=== PATIENT | male | born 1975 | race Caucasian/White ===

== ENCOUNTER 2018-08-22 02:16 | Emergency (ER) | payer OTHER ==
[2018-08-22 02:35] VITALS: BP 147/100; PULSE 90; RESP 18; TEMP 98.1
--- NOTE | 2018-08-22 04:15 | ED ---
General Adult HPI - General Chief complaint: Recheck/Abnormal Lab/Rx Stated complaint: Peg tube replacement Time Seen by Provider: 08/22/18 02:50 Source: EMS Mode of arrival: EMS - History of Present Illness Initial comments: 42-year-old male patient presented to the emergency department today for evaluation of clogged PEG tube. Patient was seen and evaluated at [facility] earlier today. Tube was replaced with a 10-Sami Jernigan catheter. When he arrived back at [facility] the tube would not flush so they sent him here for further evaluation. Patient denies any abdominal pain. Denies any nausea or vomiting. Denies any fever or chills. States he otherwise feels well. Patient denies any recent rash, fever, chills, shortness breath, chest pain, diarrhea, constipation, back pain, numbness, tingling, dizziness, weakness, hematuria, dysuria, urinary urgency, urinary frequency, headache, visual changes, or any other complaints. - Related Data Allergies Allergy/AdvReac Type Severity Reaction Status Date / Time erythromycin base Allergy Unknown Verified 08/22/18 02:35 Review of Systems ROS Statement: Those systems with pertinent positive or pertinent negative responses have been documented in the HPI. ROS Other: All systems not noted in ROS Statement are negative. Past Medical History Past Medical History: Hypertension, Seizure Disorder History of Any Multi-Drug Resistant Organisms: None Reported Additional Past Surgical History / Comment(s): Tracheostomy Past Psychological History: No Psychological Hx Reported Smoking Status: Never smoker Past Alcohol Use History: None Reported Past Drug Use History: None Reported General Exam General appearance: alert, in no apparent distress, other (Physical well- developed, well-nourished adult male patient in no acute distress. Vital signs upon presentation are temperature 98.1F, pulse 90, respirations 18, blood pressure 147/100, pulse ox 99% on room air.) Eye exam: Present: normal appearance, PERRL, EOMI. Absent: scleral icterus, conjunctival injection, periorbital swelling ENT exam: Present: normal exam, normal oropharynx, mucous membranes moist Respiratory exam: Present: normal lung sounds bilaterally. Absent: respiratory distress, wheezes, rales, rhonchi, stridor Cardiovascular Exam: Present: regular rate, normal rhythm, normal heart sounds. Absent: systolic murmur, diastolic murmur, rubs, gallop, clicks GI/Abdominal exam: Present: soft, normal bowel sounds, other (PEG tube noted to the left upper quadrant abdomen. No drainage from the insertion site.). Absent: distended, tenderness, guarding, rebound, rigid Neurological exam: Present: alert, oriented X3, CN II-XII intact Psychiatric exam: Present: normal affect, normal mood Skin exam: Present: warm, dry, intact, normal color. Absent: rash Course Vital Signs 08/22/18 02:24 Temperature 98.1 F Pulse Rate 90 Respiratory 18 Rate Blood Pressure 147/100 O2 Sat by Pulse 99 Oximetry Medical Decision Making - Medical Decision Making 42-year-old male patient presented to the emergency department today for evaluation of a clogged PEG tube. Physical examination did reveal a 10-Sami Jernigan catheter inserted in the left upper abdomen. This would not flush. We did replace this with a 10-Sami Jernigan catheter as we do not have PEG tubes available in this size. X-ray was obtained which showed good contrast opacification with no leakage of the contrast. We did flush the tube afterwards and had easy instillation of 40cc water. Patient will be transferred back to [facility]. Instructions are to follow up with his specialist for insertion of authentic PEG tube. Patient verbalizes understanding and agrees with this plan. - Radiology Data Radiology results: report reviewed, image reviewed Two-view x-ray of the abdomen is obtained. Report reviewed in its entirety. Impression by Dr. Bell chose contrast material in the stomach outlining a gastric tube. No free spillage of contrast. There appears to be retained contrast in the colon most likely from prior study. Disposition Clinical Impression: PEG tube malfunction Disposition: HOME SELF-CARE Condition: Good Instructions (If sedation given, give patient instructions): PEG Tube Insertion (DC) Additional Instructions: Follow-up with your specialist for replacement of an authentic PEG tube. Keep the line well flushed. Return to the emergency department for any new, worsening, or concerning symptoms. Is patient prescribed a controlled substance at d/c from ED?: No Referrals: Nasir SuttonMD [Primary Care Provider] - 1-2 days Time of Disposition: 04:15
--- NOTE | 2018-08-22 04:21 | XR ---
EXAM: XR Abdomen, 2 Views CLINICAL HISTORY: : Confirm PEG placement TECHNIQUE: Frontal view of the abdomen/pelvis with upright view of the abdomen. COMPARISON: No relevant prior studies available. FINDINGS: Intraperitoneal space: No free air. Gastrointestinal tract: There is contrast noted in the stomach surrounding a gastric tube. There appears to be some contrast in the colon most likely retained from prior studies. No free spillage of contrast material into the abdomen Bones/joints: Unremarkable. IMPRESSION: Contrast material in the stomach outlining a gastric tube. No free spillage of contrast. There appears be retained contrast in the colon most likely from prior study.
== END 2018-08-22 05:01 | disposition home or self-care (01) ==
LOC: EC 02:16
DX: K94.23 Gastrostomy malfunction (principal); Z88.1 Allergy status to other antibiotic agents
CPT/HCPCS: 43762; 74018; 99283